=== PATIENT | female | born 1950 | race Caucasian/White ===

== ENCOUNTER 2016-12-08 06:35 | Day surgery (SDC) | payer BC ==
--- NOTE | ~2016-12-08 | EGD ---
EGD REPORT [facility] [address] [place] [address] NAME: JENNIFER THAKUR : [birth year] STATUS : [facility] [place] PAT#: [id number] AGE: 66 ADM/REG DATE : 12/08/16 MR#: [id number] REPORT SERV DATE: 12/08/16 DICTATED BY: LIONEL PELAEZ DATE: 12/08/16 REPORT STATUS : Draft TRANSCRIBED BY: [facility] DATE: 12/08/16 [facility] Center Patient Name: Jennifer Thakur Date of : 1950 Attending MD: LIONEL PELAEZ MD Procedure Date No Time: 12/08/2016 Procedure: Colonoscopy Indications: Screening in patient at increased risk: Colorectal cancer in mother 60 or older, Incidental change in bowel habits noted, Last colonoscopy: January 2013 Referring MD: NIKOLE REYNOSO, NUNU MAGAÑA Medicines: Propofol per Anesthesia Complications: No immediate complications. Estimated blood loss: None. Procedure: Pre-Anesthesia Assessment: - After reviewing the risks and benefits, the patient was deemed in satisfactory condition to undergo the procedure. - Prior to the procedure, a History and Physical was performed, and patient medications and allergies were reviewed. The patient's tolerance of previous anesthesia was also reviewed. The risks and benefits of the procedure and the sedation options and risks were discussed with the patient. All questions were answered, and informed consent was obtained. Prior Anticoagulants: The patient has taken no previous anticoagulant or antiplatelet agents. ASA Grade Assessment: III - A patient with severe systemic disease. After reviewing the risks and benefits, the patient was deemed in satisfactory condition to undergo the procedure. After I obtained informed consent, the scope was passed under direct vision. Throughout the procedure, the patient's blood pressure, pulse, and oxygen saturations were monitored continuously. The CF [id number] was introduced through the anus and advanced to the cecum, identified by appendiceal orifice and ileocecal valve. The colonoscopy was somewhat difficult due to the patient's body habitus. Successful completion of the procedure was aided by applying abdominal pressure. The ileocecal valve and appendiceal orifice were photographed. The patient tolerated the procedure well. The quality of the bowel preparation was adequate to identify polyps 6 mm and larger in size after copious lavage. The bowel preparation used was polyethylene glycol (PEG). Scope withdrawal time was greater than 9 EGD REPORT [address] [address] NAME: JENNIFER THAKUR : [birth year] STATUS : [facility] [place] PAT#: [id number] AGE: 66 ADM/REG DATE : 12/08/16 MR#: [id number] REPORT SERV DATE: 12/08/16 DICTATED BY: LIONEL PELAEZ DATE: 12/08/16 REPORT STATUS : Draft TRANSCRIBED BY: [employer] DATE: 12/08/16 minutes. Findings: The perianal and digital rectal examinations were normal. Pertinent negatives include normal sphincter tone. Non-bleeding internal hemorrhoids were found during retroflexion and were small and Grade I (internal hemorrhoids that do not prolapse). A few small-mouthed diverticula were found in the sigmoid colon. A single 3 cm linear erosion with non-bleeding was found in the transverse colon. No stigmata of recent bleeding were seen. Biopsies were taken with a cold forceps for histology. Estimated blood loss: none. The exam was otherwise without abnormality. Impression: - Non-bleeding internal hemorrhoids. - Mild diverticulosis in the sigmoid colon. - A single 3 cm linear erosion in the transverse colon likely due to NSAID use (meloxicam). Biopsied. - The examination was otherwise normal. Recommendation: - Discharge patient to home (ambulatory). - High fiber diet indefinitely. - Continue present medications. - Begin Metamucil or Konsyl one tablespoon daily. - Await pathology results. - Repeat colonoscopy in 5 years for screening purposes and for surveillance. - Return to GI clinic PRN. - Patient has a contact number available for emergencies. The signs and symptoms of potential delayed complications were discussed with the patient. Return to normal activities tomorrow. Written discharge instructions were provided to the patient. Procedure Code(s): --- Professional --- 90171, Colonoscopy, flexible, proximal to splenic flexure; with biopsy, single or multiple Diagnosis Code(s): --- Professional --- K64.0, First degree hemorrhoids K57.30, Diverticulosis of large intestine without perforation or abscess without bleeding K63.3, Ulcer of intestine Z12.11, Encounter for screening for malignant neoplasm of colon Z80.0, Family history of malignant neoplasm of digestive organs EGD REPORT [facility] [address] [place]. [address] NAME: JENNIFER THAKUR : [birth year] STATUS : [facility] [place] PAT#: [id number] AGE: 66 ADM/REG DATE : 12/08/16 MR#: [id number] REPORT SERV DATE: 12/08/16 DICTATED BY: LIONEL PELAEZ. DATE: 12/08/16 REPORT STATUS : Draft TRANSCRIBED BY: [employer] DATE: 12/08/16 CPT copyright 2013 [employer]. All rights reserved. The codes documented in this report are preliminary and upon facilities manager review may be revised to meet current compliance requirements. LIONEL PELAEZ MD 12/08/2016 8:44 AM This report has been signed electronically. Number of Addenda: 0 Note Initiated On: 12/08/2016 8:03 AM Scope Withdrawal Time 0 hours 9 minutes 40 seconds [id number] [facility] [id number]
[~2016-12-08 06:35] MED LIST: AMILOR/HCTZ1 TAB PO; ASAB PO; COREG12 PO; CYANO1000T PO; DIOVAN320 MG PO; GLUCOPHAGE1000 MG PO; KLOR-CON M2020 MEQ PO; LIPITOR40 PO; MOBIC15 MG PO; VITAMIN D31000 UNIT PO
== END 2016-12-08 23:59 | disposition home health service (06) ==
LOC: DMU 06:35
PROVIDERS: Internal Medicine Gastroenterology
PROC: 0DBL8ZX Excision of Transverse Colon, Via Natural or Artificial Opening Endoscopic, Diagnostic (ICD-10-PCS; principal; 2016-12-08 08:30)
DX: K52.9 Noninfective gastroenteritis and colitis, unspecified (principal); K64.0 First degree hemorrhoids; K57.30 Diverticulosis of large intestine without perforation or abscess without bleeding; K63.3 Ulcer of intestine; E78.00 Pure hypercholesterolemia, unspecified; I10 Essential (primary) hypertension; M19.90 Unspecified osteoarthritis, unspecified site; E11.9 Type 2 diabetes mellitus without complications; Z80.0 Family history of malignant neoplasm of digestive organs; Z79.82 Long term (current) use of aspirin; Z79.899 Other long term (current) drug therapy; Z86.010 Personal history of colon polyps; Z98.41 Cataract extraction status, right eye; Z98.42 Cataract extraction status, left eye; Z96.1 Presence of intraocular lens; Z98.890 Other specified postprocedural states
CPT/HCPCS: 82962; 88305